=== PATIENT | female | born 1990 | race African-American/Black ===

== ENCOUNTER 2019-04-18 12:14 | Emergency (ER) | payer BC, SELFPAY ==
[2019-04-18 12:52] LABS: Bilirubin Negative (Negative); Blood, Urine Negative (Negative); Clarity Hazy (Clear); Glucose, Urine (Dipstick) Negative (Negative); Leukocyte Trace (Negative); Nitrite Negative (Negative); Protein, Urine (Dipstick) Negative (Neg-Trace); Urobilinogen 0.2 mg/dL (Less than 2)
[2019-04-18 12:55] LABS: Bacteria/HPF 1+ HPF (None Seen); RBC/HPF None Seen HPF (0-3); WBC/HPF 0-3 HPF (0-3)
== END 2019-04-18 13:35 | disposition home or self-care (01) ==
LOC: SCSER 12:14
DX: O9A.212 Injury, poisoning and certain other consequences of external causes complicating pregnancy, second trimester (principal); S39.012A Strain of muscle, fascia and tendon of lower back, initial encounter; O99.612 Diseases of the digestive system complicating pregnancy, second trimester; K59.00 Constipation, unspecified; O99.89 Other specified diseases and conditions complicating pregnancy, childbirth and the puerperium; R10.32 Left lower quadrant pain; Z3A.16 16 weeks gestation of pregnancy; X50.9XXA Other and unspecified overexertion or strenuous movements or postures, initial encounter
CPT/HCPCS: 81003; 81015; 99283

== ENCOUNTER 2019-09-23 19:50 | Inpatient (IN) | payer BC, OTHER ==
[2019-09-23] MEDS ORDERED: hydrALAZINE 20 MG/ML VIAL SLOW IVP PRN ×2 (20:07→23:06)
[2019-09-23] MEDS ORDERED: FLU VACC QS2019-20(6MOS UP)/PF 60 MCG/0.5 ML SYRINGE IM ONE (21:00)
[2019-09-23 21:12] LABS: #Lymphocytes 1.9 thou/uL (1.20-3.40); #Monocytes 0.8 thou/uL (0.11-0.59); %Basophils 0.5 % (0.0-1.0); %Eosinophils 0.4 % (0.0-10.0); %Lymphocytes 21.7 % (21.0-51.0); %Monocytes 9.5 % (0.0-10.0); Hemoglobin 11.5 g/dL (12.0-16.0); Mean Corpuscular HGB CONC 32.8 g/dL (32.0-36.0); Mean Corpuscular Hemoglobin 28.5 pg (27.0-31.0); Mean Corpuscular Volume 86.8 fL (78.0-98.0); Mean Platelet Volume 8.5 fL (7.4-10.4); Platelet Count 223 thou/uL (130-400); RBC Distribution Width 13.3 % (11.5-14.5); Red Blood Cell (RBC) Count 4.03 mill/uL (4.20-5.40); White Blood Cell (WBC) Count 8.8 thou/uL (4.8-10.8)
[2019-09-23 21:34] LABS: ALT (SGPT) 16 U/L (8-55); AST (SGOT) 18 U/L (5-34); Alkaline Phosphatase 180 U/L (40-110); Anion Gap 14 mmol/L (10-20); BUN (Urea Nitrogen) 11 mg/dL (7.0-18.7); Bilirubin, Total 0.3 mg/dL (0.2-1.2); Calc. Creatinine Clearance 0 mL/min (70-130); Calcium 8.9 mg/dL (7.8-10.44); Carbon Dioxide 19 mmol/L (22-29); Chloride 108 mmol/L (98-107); Estimated GFR-MDRD 87; Globulin 3.6 g/dL (2.4-3.5); Glucose 92 mg/dL (70-105); Potassium 3.9 mmol/L (3.5-5.1); Protein, Total 6.6 g/dL (6.0-8.3); Sodium 137 mmol/L (136-145)
[2019-09-23 22:03] LABS: Creatinine, Urine 34.09 mg/dL (47-110); Protein, Urine Random Quant Less than 10 mg/dL (1-14)
--- NOTE | 2019-09-23 22:12 | PDOC.LDHP ---
Labor and Delivery H&P Chief complaint: contractions HPI: 29 y/o at 38w4d presents with ctx q 10 mins starting around 6pm. Denies VB, LOF, or decreased FM. Patient lives here but sees a doctor in [place]. Her next appointment with him is tomorrow. ROS neg for HEENT, cv, pulm, gi, gu, neuro, psych, skin, musculoskeletal or constitutional symptoms other than mentioned above. OB History Details: 2 prior SABs Current complications: none Past Medical History: States she had cervical cancer treated with cryotherapy in 2010 Current medications: pre- vitamins Previous surgical history: none Allergies/Adverse Reactions: Allergies Allergy/AdvReac Type Severity Reaction Status Date / Time Sulfa (Sulfonamide Allergy Verified 09/23/19 20:18 Antibiotics) Social history: none - Physical Exam Vital signs reviewed and normal: yes Abnormal vital signs: mild range BPs General: NAD, resting Lungs: nonlabored breathing Abdomen: gravid Extremeties: no edema FHT: category 1 (145, mod variability, + accels, occasional variable decels) [place] contractions every: 8-10 mins - Vaginal Exam cm dilated: 1 Effacement: 50% Station: -3 - OB Labs Blood type: O RH: positive - Assessment L&D Assessment: term patient in labor (with elevated BPs at term) BPP 8/8, KIMBERLY 8.2cm. EFW per criminal records technician 4%ile but patient reports she had a recent ultrasound measuring the fetus at 7lb 8oz (AGA). - Plan Plan: admit to L&D, labor augmentation if indicated, informed consent obtained, anesthesia consult for pain management (if desired) -: Records requested from planned hospital for delivery. Patient counseled that BPs are persistently mildly elevated. Patient nervous about medications but is changing her cervix at this time. Will continue expectant management overnight and reassess need for augmentation in the am.
[2019-09-23] MEDS ORDERED: Ondansetron PF 4 MG/2 ML Vial IVP PRN (23:06)
[2019-09-23] MEDS ORDERED: Acetaminophen 500 MG TAB PO PRN (23:06)
[2019-09-23] MEDS ORDERED: Butorphanol Tartrate 1 MG/ML VIAL SLOW IVP PRN (23:06)
[2019-09-23] MEDS ORDERED: HYDROcodone/Acetaminophen 5/325 mg Tablet PO PRN ×2 (23:06)
[2019-09-23] MEDS ORDERED: Misoprostol 200 MCG TAB PR PRN (23:06)
[2019-09-23] MEDS ORDERED: NS / Oxytocin 40 units/1000ml 1,000 ML IV PRN (23:06)
[2019-09-23] MEDS ORDERED: Lidocaine 1% (PF) 30 ML VIAL SC PRN (23:06)
[2019-09-23] MEDS ORDERED: Methylergonovine 0.2 MG/ML VIAL IM PRN (23:06)
[2019-09-23] MEDS ORDERED: Diphenoxylate HCl/Atropine Tablet PO PRN ×2 (23:06)
[2019-09-23] MEDS ORDERED: Ibuprofen 800 MG TAB PO PRN (23:06)
[2019-09-23] MEDS ORDERED: Carboprost 250 MCG/ML AMP IM PRN (23:06)
[2019-09-23] MEDS ORDERED: Promethazine HCl 25 MG/ML VIAL IM PRN (23:06)
--- NOTE | 2019-09-23 23:16 | ULT ---
ULTRASOUND OBSTETRICAL COMPLETE: ULTRASOUND BIOPHYSICAL PROFILE: DATE: 09/23/2019 HISTORY: 29-year-old female in third trimester with "intermittent decelerations" FINDINGS: breathin tone: 2 movement: 2 Amniotic fluid volume: 2 number: goodman lie: Cephalic Maternal cervix: Poorly visualized. Placenta: Fundal and slightly posterior. Amniotic fluid volume: KIMBERLY = 8cm heart rate: 132 bpm anatomy not evaluated biometry: Biparietal diameter (BPD): 8.7 cm 35 w 1 d Head circumference (HC): 30.9 cm 34 w 3 d Abdominal circumference (AC): 30.6 cm 34 w 4 d Femur length (FL): 7.2 cm 36 w 6 d Average ultrasound age (AUA): 35 w 2 d Estimated date of delivery (MARK): 10/26/2019 Estimated weight (EFW): 2628 g +/- 389 g IMPRESSION: 1) Live 3rd trimester intrauterine gestation. 2) cephalic lie. 3) Normal biophysical profile score of 8 out of 8, excluding the nonstress test. 4) KIMBERLY 8 cm.
--- NOTE | 2019-09-23 23:27 | PDOC.BPN ---
- Brief Progress Note Records reviewed. Patient is GBS+, will start PCN when in active labor. HSV2+ antibodies, no lesions noted on exam. BT: O+ SC neg HepB neg Rubella immune RPR neg HIV neg Pap neg GC neg
[2019-09-23] MEDS ORDERED: Penicillin G Potassium 5 MILL.UNITS in Sodium Chloride 0.9% 100 ML IVPB SCH (23:30)
[2019-09-24 00:40] LABS: Syphilis Antibody Nonreactive (Nonreactive); Syphilis Antibody Index 0.04 S/CO (<1.00 Non-Reactive)
[2019-09-24 00:54] LABS: HBSAg Index 0.15 S/CO (0-0.99); HIV (1/2) Antibody/Antigen Non-Reactive (NonReactive); HIV 1/2 INDEX 0.08 S/CO (<1.00); Hep B Surf Ag Non-Reactive S/CO (NonReactive)
[2019-09-24] MEDS: Lactated Ringer's 1,000 ML IV SCH ×3 (06:53→18:43)
--- NOTE | 2019-09-24 07:47 | PDOC.BPN ---
- Brief Progress Note Cooks balloon placed @ 0740 without complications. 60cc sterile fluid injected to internal bulb and position confirmed. Pt tolerated procedure well.
[2019-09-24 08:56] VITALS: BMI 45.9
[2019-09-24] MEDS: Penicillin G 2.5 MILL.units 2.5 MILL.UNITS in Premix Bag 1 BAG IVPB SCH ×3 (10:45→20:55)
--- NOTE | 2019-09-24 16:24 | PDOC.LDPN ---
Labor & Delivery Progress Note - Subjective Subjective: comfortable - Objective Vital signs reviewed and normal: yes General: NAD Uterine fundus: non tender Dilation: 4 Effacement: 50% Station: -2 FHT: category 1 AROM: meconium stained fluid IUPC placed: yes -: initiate pcn
[2019-09-24] MEDS ORDERED: Penicillin G Potassium 5 MILL.UNITS in Sodium Chloride 0.9% 100 ML IVPB SCH (16:45)
[2019-09-24] MEDS ORDERED: Bicitra 30 ML UDCUP PO SCH (21:45)
[2019-09-24] MEDS ORDERED: Azithromycin 500 MG in Sodium Chloride 0.9% 250 ML 250 ML IVPB SCH (21:45)
[2019-09-24] MEDS ORDERED: CEFAZOLIN 2 GM in Premix Bag 1 BAG IVPB SCH (21:45)
--- NOTE | 2019-09-24 22:01 | PRG ---
DATE OF SERVICE: 09/24/2019 TIME OF SERVICE: 2135 hours. SUBJECTIVE: The patient continues to have variable D cells with late components with moderate meconium, status post AROM. She is having contractions every 5 minutes. Cervical exam reveals cervix to be essentially unchanged at 4, 75, and -2 with moderate meconium. IMPRESSION: Non-reassuring heart rate tracing remote from delivery with moderate meconium with possible intrauterine growth restriction indicated by an ultrasound with other care in [place]. PLAN: Discussed with the patient options. We will proceed with primary delivery. We will administer appropriate antibiotic and DVT prophylaxis. Job ID: [id number]
[2019-09-24] MEDS ORDERED: Fentanyl 100 MCG/2 ML VIAL ONE (22:08)
[2019-09-24] MEDS ORDERED: MORPHINE 5 MG/10 ML PF VIAL ONE (22:08)
[2019-09-24] MEDS ORDERED: Ondansetron PF 4 MG/2 ML Vial ONE (22:09)
[2019-09-24] MEDS ORDERED: ePHEDrine/0.9% NaCl/PF SYRINGE 50 mg/10 ml ONE (22:09)
[2019-09-24] MEDS ORDERED: Oxytocin 10 UNITS/ML VIAL ONE (22:09)
[2019-09-24] MEDS ORDERED: PHENYLEPHRINE-NS 100 MCG/ML 10 ML SYRINGE ONE (22:09)
[2019-09-24] MEDS ORDERED: Ketorolac Tromethamine 30 MG/ML VIAL ONE ×2 (22:09→22:50)
[2019-09-24] MEDS ORDERED: Dexamethasone 4 mg/ml Vial ONE (22:49)
[2019-09-24] MEDS ORDERED: Promethazine HCl 25 MG/ML VIAL ONE (22:49)
[2019-09-24] MEDS ORDERED: Promethazine HCl 25 MG SUPP PR PRN (23:10)
[2019-09-24] MEDS ORDERED: Ondansetron HCl/PF 4 MG/2 ML Vial IVP PRN (23:10)
[2019-09-24] MEDS ORDERED: Naloxone HCl 0.4 mg/ml Vial IV PRN (23:10)
[2019-09-24] MEDS ORDERED: Ondansetron PF 4 MG/2 ML Vial IVP PRN (23:10)
[2019-09-24] MEDS ORDERED: Promethazine HCl 25 MG/ML VIAL IM PRN (23:10)
[2019-09-24] MEDS ORDERED: Naloxone HCl 0.4 mg/ml Vial IVP PRN ×2 (23:10)
[2019-09-24] MEDS ORDERED: Meperidine HCl/PF 25 MG/ML VIAL SLOW IVP PRN (23:10)
[2019-09-24] MEDS ORDERED: diphenhydrAMINE 50 MG/ML VIAL IVP PRN (23:10)
[2019-09-24] MEDS ORDERED: Ketorolac Tromethamine 30 MG/ML VIAL IVP PRN (23:10)
[2019-09-24] MEDS ORDERED: L&D-Morphine 4 MG/ML VIAL SLOW IVP PRN (23:10)
[2019-09-24] MEDS ORDERED: HYDROmorphone 2 MG/ML VIAL SLOW IVP PRN (23:10)
[2019-09-24] MEDS ORDERED: Ketorolac Tromethamine 30 MG/ML VIAL IVP SCH (23:15)
[2019-09-24] MEDS ORDERED: Communication Order-Pharmacy FS SCH (23:15)
[2019-09-24 23:19] LABS: Actual Bicarbonate (HCO3a) 22.4 mEq/L (22-28)
[2019-09-24 23:20] LABS: Actual Bicarbonate (HCO3v) 26 mEq/L (22-28); Base Excess -1.8 mEq/L (-2.0 to +3.0)
--- NOTE | 2019-09-25 00:32 | OP ---
DATE OF PROCEDURE: 09/24/2019 RESIDENT PHYSICIAN: Dr. Laurie Swan. ATTENDING PHYSICIAN: Dr. Chris Verma PROCEDURE: Primary low transverse section PREOPERATIVE DIAGNOSES: 1. Term intrauterine . 2. Medically-indicated induction of labor for gestational hypertension. 3. Out of town care. 4. Intrauterine growth restriction in 4th percentile based on stated gestational age and ultrasound done 09/23/2019. 5. NRFHT's with recurrent late decelerations, intolerance of labor. POSTOPERATIVE DIAGNOSES: 1. Term intrauterine , delivered. 2. Medically-indicated induction of labor for gestational hypertension. 3. Out of town care. 4. Intrauterine growth restriction in 4th percentile based on stated gestational age and ultrasound done 09/23/2019. 5. NRFHT's with recurrent late decelerations, intolerance of labor. INDICATIONS: This is a 29-year-old G3, P0-0-2-0, who presented to Labor and Delivery at 38.4 weeks with contractions. She was noted to have elevated blood pressures during the triage period. Of note, the patient is from [place]. All her records are in [place]. Other than 2 prior SABs, the patient had no known complications during her . She was induced due to her elevated blood pressures with a diagnosis of gestational hypertension. During the course of her labor process, she was noted to have recurrent late decelerations. Give recurrent late decelerations remote from delivery, a decision was made to proceed with a section. Of note, there was also thick meconium noted on rupture. The EFW per the manager of radiology done here in our hospital at 38.4 weeks was 4th percentile. I do not have any records for comparison at this time , we presumed the to be IUGR. PROCEDURE IN DETAIL: After risks, benefits, and alternatives were discussed with the patient, she gave informed consent. She was given Ancef 2 g IV as well as azithromycin 500 mg prior to the procedure. She was taken back to the operating room and spinal anesthesia was initiated. She was placed in the left lateral tilt and prepped and draped in the usual sterile fashion. A Pfannenstiel incision was made and the incision was carried down to the level of fascia, which was sharply nicked. The fascial cut was extended laterally with Napier scissors. The superior and inferior aspect of the fascial edges were sharply and bluntly dissected free. An Yong O was placed. Incision was made in the midline of the uterus using a scalpel. The hysterotomy was then extended manually. The infant was noted to be vertex in the occiput posterior position and delivered with fundal pressure with no complications. No nuchal cords noted. Cord was clamped and cut and grossly normal male was handed to the awaiting nurse. Cord blood was collected. The placenta was delivered manually, found to be intact with three vessel cord and sent for pathology. Cord gas was also sent for venous and arterial blood. The hysterotomy was curetted with a dry lap. The hysterotomy was then closed using 1-0 Monocryl in a running locking fashion. An vertical imbricating layer was then sewn utilizing 1-0 Monocryl in a running locking fashion. The hysterotomy was examined and noted to be hemostatic. The Yong O was then removed. The muscles were examined for bleeders and bleeders were appropriately cauterized. The fascia was then closed using 0 PDS suture in running nonlocking fashion. The subcutaneous tissue was then irrigated and bleeders were cauterized. The subcutaneous tissues were approximated using 2-0 plain gut. The skin was then brought together using tai. A pressure dressing was applied. All counts were correct. COMPLICATIONS: None. DRAINS: Mitchell to gravity draining clear urine. SPECIMENS: Cord blood sent to lab for type and screen. Cord gas sent for analysis. Placenta sent for pathology. QBL: 325 mL Mother went to recovery for routine recovery/care. went to routine nursery for routine care. Job ID: [id number] [facility]
[2019-09-25] MEDS: Penicillin G 2.5 MILL.units 2.5 MILL.UNITS in Premix Bag 1 BAG IVPB SCH (01:00)
[2019-09-25] MEDS ORDERED: NS / Oxytocin 40 units/1000ml 1,000 ML IV SCH (01:29)
[2019-09-25] MEDS ORDERED: Acetaminophen 325 MG TAB PO PRN (01:29)
[2019-09-25] MEDS ORDERED: diphenhydrAMINE 25 MG CAP PO PRN (01:29)
[2019-09-25] MEDS ORDERED: Zolpidem Tartrate 5 MG TAB PO PRN (01:29)
[2019-09-25] MEDS ORDERED: Adacel (T-DAP) 0.5 ML SYRINGE IM ONE (01:29)
[2019-09-25] MEDS ORDERED: hydrALAZINE 20 MG/ML VIAL SLOW IVP PRN (01:29)
[2019-09-25] MEDS ORDERED: Meperidine HCl/PF 25 MG/ML VIAL IM PRN (01:29)
[2019-09-25] MEDS ORDERED: Promethazine HCl 25 MG/ML VIAL IM PRN (01:29)
[2019-09-25] MEDS ORDERED: Lanolin Ointment 7 GM TUBE TOP PRN (01:29)
[2019-09-25] MEDS ORDERED: Ondansetron PF 4 MG/2 ML Vial IVP PRN (01:29)
[2019-09-25] MEDS ORDERED: HYDROcodone/Acetaminophen 5/325 mg Tablet PO PRN (01:29)
[2019-09-25] MEDS: Lactated Ringer's 1,000 ML IV SCH ×3 (04:10→18:30)
[2019-09-25 05:15] LABS: Hemoglobin 11.8 g/dL (12.0-16.0); Mean Corpuscular HGB CONC 31.5 g/dL (32.0-36.0); Mean Corpuscular Hemoglobin 27.7 pg (27.0-31.0); Mean Corpuscular Volume 88.1 fL (78.0-98.0); Mean Platelet Volume 8.5 fL (7.4-10.4); Platelet Count 229 thou/uL (130-400); RBC Distribution Width 13.5 % (11.5-14.5); Red Blood Cell (RBC) Count 4.27 mill/uL (4.20-5.40); White Blood Cell (WBC) Count 15.5 thou/uL (4.8-10.8)
[2019-09-25] MEDS: Ibuprofen 800 MG TAB PO SCH ×2 (06:00→16:01)
--- NOTE | 2019-09-25 07:20 | PDOC.PP ---
Post Progress Note Post Day #: 1 Subjective: Patient doing well this AM. No significant overnight events. Patient states lochia less than period. No drainage from dressing. PO intake tolerated: yes Flatus: yes Ambulation: no Vital Signs (12 hours) Temp Pulse Resp BP Pulse Ox 09/25/19 03:00 99.0 F 79 18 132/67 99 09/25/19 01:50 98.6 F 60 18 150/77 H 99 09/25/19 00:00 98 Weight Weight 125.191 kg - Physical Examination General: NAD Cardiovascular: no m/r/g, RRR Respiratory: clear to auscultation bilaterally, non-labored breathing Abdominal: + bowel sounds, lochia (minimal), no distention, appropriately TTP Fundus firm & at: below umbilicus Extremities: negative homans (B) Skin: no rash Deviation from normal: Dressing clean, dry, intact Neurological: no gross focal deficits Psychiatric: A&Ox3, normal affect Result Diagrams: 09/25/19 05:01 09/23/19 21:00 Additional Labs: Post Labs Blood Type O POSITIVE 09/24/19 00:04 Hep Bs Antigen Non-Reactive S/CO (NonReactive) 09/23/19 23:49 (1) Term delivered Code(s): O80 - ENCOUNTER FOR FULL-TERM UNCOMPLICATED DELIVERY Status: Acute (2) Gestational hypertension Code(s): O13.9 - GESTATIONAL HTN W/O SIGNIFICANT PROTEINURIA, UNSP TRIMESTER Status: Acute (3) S/P primary low transverse Code(s): Z98.891 - HISTORY OF UTERINE SCAR FROM PREVIOUS SURGERY Status: Acute - Assessment/Plan Routine PP care s/p low transverse C/S - Post-op day #1 - Rh positive - Pain well controlled - Encourage ambulation - Incision with bandage in place which is clean and dry - [place] to be removed in 5-7 days Gestational HTN - BP high in PP period to 150/77 - Asymptomatic - Continue to monitor BP OOT PNC - Patient had all PNC in [place] - If not available yet, will try to obtain records Dispo: Patient doing well. Anticipate patient will stay another 24-48 hours.
[2019-09-25] MEDS: Prenatal Vitamin 1 TAB PO SCH (10:16)
[2019-09-25] MEDS: Docusate Calcium (SURFAK) 240 MG CAP PO SCH ×2 (10:16→21:22)
[2019-09-25] MEDS: HYDROcodone/Acetaminophen 5/325 mg Tablet PO PRN ×2 (12:58→17:03)
[2019-09-26] MEDS: Ibuprofen 800 MG TAB PO SCH ×3 (00:51→17:25)
[2019-09-26] MEDS: Lactated Ringer's 1,000 ML IV SCH ×3 (04:28→17:32)
[2019-09-26] MEDS: HYDROcodone/Acetaminophen 5/325 mg Tablet PO PRN ×2 (04:33→17:28)
--- NOTE | 2019-09-26 07:23 | PDOC.PP ---
Post Progress Note Post Day #: 2 Subjective: Patient doing well. She has been ambulating with minimal difficulty. Patient passing flatus. Minimal lochia. PO intake tolerated: yes Flatus: yes Ambulation: yes Vital Signs (12 hours) Temp Pulse Resp BP Pulse Ox 09/26/19 04:30 98.5 F 76 18 128/73 09/26/19 00:50 98.6 F 85 18 107/61 09/25/19 21:10 98.0 F 87 12 133/61 97 09/25/19 21:00 97 Weight Weight 125.191 kg - Physical Examination General: NAD Cardiovascular: RRR Respiratory: non-labored breathing Abdominal: + bowel sounds, lochia (like period), appropriately TTP Fundus firm & at: at umbilicus Skin: CS incision dry & intact, no rash Psychiatric: A&Ox3, normal affect Result Diagrams: 09/25/19 05:01 09/23/19 21:00 Additional Labs: Post Labs Blood Type O POSITIVE 09/24/19 00:04 Hep Bs Antigen Non-Reactive S/CO (NonReactive) 09/23/19 23:49 (1) Term delivered Code(s): O80 - ENCOUNTER FOR FULL-TERM UNCOMPLICATED DELIVERY Status: Acute (2) Gestational hypertension Code(s): O13.9 - GESTATIONAL HTN W/O SIGNIFICANT PROTEINURIA, UNSP TRIMESTER Status: Acute (3) S/P primary low transverse Code(s): Z98.891 - HISTORY OF UTERINE SCAR FROM PREVIOUS SURGERY Status: Acute - Assessment/Plan Routine PP care s/p low transverse C/S - Post-op day #2 - Rh positive - Pain well controlled - Encourage ambulation - Incision clean, dry, intact - [place] to be removed in 5-7 days Gestational HTN - BP high in PP period to 150/77, no BP >140/90 in last 24 hours - Continue to monitor BP OOT PNC - Patient had all PNC in [place] Dispo: Patient doing well. Anticipate d/c home tomorrow.
[2019-09-26] MEDS: Prenatal Vitamin 1 TAB PO SCH (09:19)
[2019-09-26] MEDS: Simethicone Chewable 80 MG TAB PO PRN ×2 (09:19→17:25)
[2019-09-26] MEDS: Docusate Calcium (SURFAK) 240 MG CAP PO SCH ×2 (09:19→22:09)
[2019-09-27] MEDS: Ibuprofen 800 MG TAB PO SCH ×2 (01:10→09:22)
[2019-09-27] MEDS: Simethicone Chewable 80 MG TAB PO PRN ×2 (01:30→09:19)
[2019-09-27] MEDS: Lactated Ringer's 1,000 ML IV SCH ×2 (01:31→13:27)
[2019-09-27 01:53] VITALS: TEMP 98
--- NOTE | 2019-09-27 07:16 | PDOC.PP ---
Post Progress Note Post Day #: 3 Subjective: Patient doing well. No significant overnight events. Patient reports gas pains which improved with warm compress to abdomen. Patient states lochia is less than period. PO intake tolerated: yes Flatus: yes Ambulation: yes Vital Signs (12 hours) Temp Pulse Resp BP Pulse Ox 09/27/19 01:12 98.0 F 84 16 141/73 H 100 09/26/19 20:01 97.8 F 84 16 122/61 98 Weight Weight 125.191 kg - Physical Examination General: NAD Cardiovascular: RRR Respiratory: non-labored breathing Abdominal: lochia (less than period), no distention, appropriately TTP Fundus firm & at: at umbilicus Skin: CS incision dry & intact, no rash Neurological: no gross focal deficits Psychiatric: A&Ox3, normal affect Result Diagrams: 09/25/19 05:01 09/23/19 21:00 Additional Labs: Post Labs Blood Type O POSITIVE 09/24/19 00:04 Hep Bs Antigen Non-Reactive S/CO (NonReactive) 09/23/19 23:49 (1) Term delivered Code(s): O80 - ENCOUNTER FOR FULL-TERM UNCOMPLICATED DELIVERY Status: Acute (2) Gestational hypertension Code(s): O13.9 - GESTATIONAL HTN W/O SIGNIFICANT PROTEINURIA, UNSP TRIMESTER Status: Acute (3) S/P primary low transverse Code(s): Z98.891 - HISTORY OF UTERINE SCAR FROM PREVIOUS SURGERY Status: Acute - Assessment/Plan Routine PP care s/p low transverse C/S - Post-op day #3 - Rh positive - Pain well controlled - Encourage ambulation - Incision clean, dry, intact - [place] to be removed in 5-7 days; patient plans on following up in [place] for PP care, prefers to keep tai in place until Tuesday and have tai taken out at that time Gestational HTN - BP high in PP period to 150/77, BP high to 141/73 last night - Continue to monitor BP - Will need to follow BP with PCP OOT PNC - Patient had all PNC in [place] Dispo: Patient doing well. D/C home today.
[2019-09-27] MEDS ORDERED: Milk Of Magnesia 30 ML UDCUP PO ONE (08:04)
[2019-09-27 08:18] VITALS: BP 139/72
[2019-09-27] MEDS: Docusate Calcium (SURFAK) 240 MG CAP PO SCH (09:19)
[2019-09-27] MEDS: Prenatal Vitamin 1 TAB PO SCH (09:19)
[2019-09-27] MEDS: HYDROcodone/Acetaminophen 5/325 mg Tablet PO PRN (13:25)
== END 2019-09-27 15:15 | disposition home or self-care (01) | DRG 788 ==
LOC: L&D/OP 19:50 → L&D 09-24 07:27 → 3SW 09-25 01:50
PROVIDERS: ADMIT Obstetrics & Gynecology; ATTEND Obstetrics & Gynecology
PROC: 10D00Z1 Extraction of Products of Conception, Low, Open Approach (ICD-10-PCS; principal; 2019-09-24)
PROC: 0U7C7ZZ Dilation of Cervix, Via Natural or Artificial Opening (ICD-10-PCS; 2019-09-24)
PROC: 10907ZC Drainage of Amniotic Fluid, Therapeutic from Products of Conception, Via Natural or Artificial Opening (ICD-10-PCS; 2019-09-24)
PROC: 10H07YZ Insertion of Other Device into Products of Conception, Via Natural or Artificial Opening (ICD-10-PCS; 2019-09-24)
DX: O13.4 Gestational [pregnancy-induced] hypertension without significant proteinuria, complicating childbirth (principal); O76 Abnormality in fetal heart rate and rhythm complicating labor and delivery; Z37.0 Single live birth; Z3A.38 38 weeks gestation of pregnancy; O99.824 Streptococcus B carrier state complicating childbirth; O77.0 Labor and delivery complicated by meconium in amniotic fluid; O36.5930 Maternal care for other known or suspected poor fetal growth, third trimester, not applicable or unspecified; Z85.41 Personal history of malignant neoplasm of cervix uteri; Z28.21 Immunization not carried out because of patient refusal
CPT/HCPCS: 36415; 51702; 76819; 80053; 82570; 82805; 84156; 85025; 85027; 86780; 86850; 86900; 86901; 87340; 87389; 88307; 99285; C1726; J0456; J0690; J1100; J1885; J2274; J2405; J2540; J2550; J2590; J3010; J3490; J7050

== ENCOUNTER 2023-09-02 16:46 | Outpatient (CLI) | payer BC, OTHER | END 2023-09-02 16:47 | disposition home or self-care (01) | LOC: SCSRAD 16:46 | PROVIDERS: ATTEND Nurse Practitioner Family | DX: S99.912A Unspecified injury of left ankle, initial encounter (principal) ==